=== PATIENT | male | born 1960 | race Caucasian/White ===

== ENCOUNTER 2023-01-08 11:53 | Day surgery (SDC) | payer OTHER ==
[2023-01-07 10:01] LABS: BASOPHILS # (AUTO) 0.1 X10'3 (0-0.2); BASOPHILS % (AUTO) 0.7 % (0-1); EOSINOPHILS # (AUTO) 0.2 X10'3 (0-0.9); EOSINOPHILS % (AUTO) 3.5 % (0-6); HEMOGLOBIN 14.7 g/dl (14.0-17.9); LYMPHOCYTES # (AUTO) 2.1 X10'3 (1.1-4.8); LYMPHOCYTES % (AUTO) 29.6 % (21-51); MEAN CORPUSCULAR HEMOGLOBIN 28.3 PG (27.0-31.0); MEAN CORPUSCULAR HGB CONC 32.6 g/dL (33.0-36.5); MEAN CORPUSCULAR VOLUME 86.8 FL (78-98); MEAN PLATELET VOLUME 7.8 FL (7.4-10.4); MONOCYTES # (AUTO) 0.7 X10'3 (0-0.9); MONOCYTES % (AUTO) 10.4 % (2-12); NEUTROPHILS # (AUTO) 3.9 X10'3 (1.8-7.7); NEUTROPHILS % (AUTO) 55.8 % (42-75); PLATELET COUNT 200 X10'3 (140-440); RED BLOOD COUNT 5.18 X10'6 (4.70-6.10); RED CELL DISTRIBUTION WIDTH 13.8 % (11.5-14.5)
[2023-01-07 10:13] LABS: ALBUMIN 3.7 G/DL (3.4-5.0); ANION GAP 8 (8-16); APTT 26 SECONDS (22-32); BLOOD UREA NITROGEN 21 MG/DL (7-18); BUN/CREATININE RATIO 21.4 (10.0-20.0); CALCIUM 9.5 MG/DL (8.5-10.1); CHLORIDE 104 MMOL/L (99-107); CREATININE 0.98 MG/DL (0.60-1.10); GLUCOSE 120 MG/DL (70-104); POTASSIUM 4.3 MMOL/L (3.5-5.1); PROTHROMBIN TIME 10.5 SECONDS (9.0-12.0); SODIUM 141 MMOL/L (135-145); eGFR 77 ML/MIN
[2023-01-08] VITALS (8 sets, daily range): BP systolic 128–144; BP diastolic 67–80; PULSE 60–69; RESP 14–17; TEMP 98.1; O2SAT 94–97
[~2023-01-08] VITALS: Ht 182.9 cm; Wt 94.8 kg
[2023-01-08] MEDS ORDERED: AMLO10TA13 PO (12:13)
[2023-01-08] MEDS ORDERED: LISI40TA13 PO (12:13)
[2023-01-08] MEDS ORDERED: OMEP40CA21 PO (12:13)
[2023-01-08] MEDS ORDERED: ATOR10TA70 PO (12:13)
[2023-01-08] MEDS ORDERED: NEBI5TAB12 PO (12:13)
[2023-01-08] MEDS ORDERED: diphenhydrAMINE 25mg capsule PO PRN (12:15)
[2023-01-08] MEDS ORDERED: LORazepam 0.5 MG tablet PO PRN (12:15)
[2023-01-08] MEDS ORDERED: normal saline 1,000 ML IV SCH (12:15)
[2023-01-08] MEDS ORDERED: fentaNYL/PF 50MCG/1 ML 2ML syringe ONE (12:53)
[2023-01-08] MEDS ORDERED: verapamil 2.5 mg/ml inj IV ONE (12:53)
[2023-01-08] MEDS ORDERED: LIDOcaine 1% (10mg/ml) 2ml vial ONE (12:53)
[2023-01-08] MEDS ORDERED: iohexol 350 MG/ML 50ML vial IV ONE (12:53)
[2023-01-08] MEDS ORDERED: midazolam 1 mg/ML 2ml injection ONE (12:53)
[2023-01-08] MEDS ORDERED: heparin 1,000unit/ml 10ml vial 10 ML ONE (12:53)
[2023-01-08] MEDS ORDERED: iohexol 350MG/ML 100ml bottle IV ONE (12:54)
[2023-01-08] MEDS ORDERED: nitroGLYCERIN 500mcg/5mL D5W 5 ML IV ONE (13:05)
[2023-01-08] MEDS ORDERED: LIDOcaine 1% (10mg/ml)w/preservative inj. 20ml MDV ONE (14:35)
[2023-01-08 15:16] LABS: ISTAT HGB ART 13.6 g/dl (14.0-17.9); ISTAT Hct ART 40 %PCV (42-52); ISTAT O2 SATURATION ARTERIAL 94 % (95-98); ISTAT SOURCE ART
[2023-01-08] MEDS ORDERED: normal saline 1000ml 1,000 ML IV SCH (15:55)
[2023-01-11 07:01] LABS: ISTAT HGB MIX 13.6 g/dl (14.0-17.9); ISTAT Hct MIX 40 %PCV (42-52); ISTAT O2 SATURATION MIX VENOUS 51 % (60-80); ISTAT SOURCE VEN
== END 2023-01-08 18:00 | disposition home or self-care (01) ==
LOC: SSTAY O 11:53
PROVIDERS: ATTEND Internal Medicine Cardiovascular Disease
DX: I35.1 Nonrheumatic aortic (valve) insufficiency (principal); I10 Essential (primary) hypertension; E78.5 Hyperlipidemia, unspecified; J45.909 Unspecified asthma, uncomplicated; Z79.899 Other long term (current) drug therapy; Z98.890 Other specified postprocedural states; Z91.013 Allergy to seafood; Z88.8 Allergy status to other drugs, medicaments and biological substances; Z82.49 Family history of ischemic heart disease and other diseases of the circulatory system; Z83.3 Family history of diabetes mellitus
CPT/HCPCS: 36415; 76937; 80048; 82803; 85014; 85025; 85610; 85730; 93005; 93460; 93567; 99152; 99153; J1644; J2250; J3010; J3490; J7030; Q0163; Q9967; A6258; A6449; C1725; C1751; C1769; C1894

== ENCOUNTER 2023-01-21 05:34 | Inpatient (IN) | payer OTHER ==
[2023-01-20 13:13] LABS: ABG BASE EXCESS -1.3 mmol/L (-2.0-2.0); ABG HCO3 23.3 mmol/L (22.0-26.0); ABG PCO2 (T) 38.9 mmHg (35.0-48.0); ABG PH (T) 7.395 (7.340-7.440); ALLEN'S TEST POSITIVE; FCOHb 0.4 % (0.0-3.9); FMetHb 0.4 % (0.0-1.5); FO2Hb 94.2 % (94-97); MODE ROOM AIR; TOTAL HEMOGLOBIN 15.8 G/dl (14.0-17.9)
[2023-01-20 13:46] LABS: BILIRUBIN,URINE NEGATIVE (Neg); CLARITY,URINE CLEAR (Clear); COLOR,URINE YELLOW (Yellow); GLUCOSE, URINE NEGATIVE (Neg); KETONES,URINE TRACE mg/dl (Neg); LEUKOCYTE ESTERASE ,URINE NEGATIVE (Neg); NITRITES, URINE NEGATIVE (Neg); OCCULT BLOOD,URINE NEGATIVE (Neg); PH,URINE 5.5 (4.8-8.0); PROTEIN,URINE NEGATIVE (Neg); UROBILINOGEN,URINE 0.2 E.U/dL (0.2-1.0)
[2023-01-20 13:47] LABS: BASOPHILS # (AUTO) 0.1 X10'3 (0-0.2); BASOPHILS % (AUTO) 0.9 % (0-1); EOSINOPHILS # (AUTO) 0.3 X10'3 (0-0.9); EOSINOPHILS % (AUTO) 4.5 % (0-6); LYMPHOCYTES # (AUTO) 1.8 X10'3 (1.1-4.8); MEAN CORPUSCULAR HEMOGLOBIN 28.8 PG (27.0-31.0); MEAN CORPUSCULAR HGB CONC 33.2 g/dL (33.0-36.5); MEAN CORPUSCULAR VOLUME 86.8 FL (78-98); MEAN PLATELET VOLUME 8.3 FL (7.4-10.4); MONOCYTES # (AUTO) 0.7 X10'3 (0-0.9); MONOCYTES % (AUTO) 10.1 % (2-12); NEUTROPHILS # (AUTO) 3.9 X10'3 (1.8-7.7); NEUTROPHILS % (AUTO) 57.5 % (42-75); PRE OP HEMATOCRIT 45.2 % (42.0-52.0); PRE OP PLATELET COUNT 229 X10'3 (140-440); PRE OP WHITE BLOOD COUNT 6.8 10'3 (4.8-10.8); RED CELL DISTRIBUTION WIDTH 13.9 % (11.5-14.5)
[2023-01-20 13:48] LABS: UA COLLECTION TYPE VOIDED
[2023-01-20 13:59] LABS: PRE OP PROTIME 10.3 SECONDS (9.0-12.0)
[2023-01-20 14:08] LABS: ALBUMIN 3.8 G/DL (3.4-5.0); ALBUMIN/GLOBULIN RATIO 1.4 (1.1-1.5); ALKALINE PHOSPHATASE 74 IU/L (46-116); BLOOD UREA NITROGEN 15 MG/DL (7-18); BUN/CREATININE RATIO 17.9 (10.0-20.0); CHLORIDE 103 MMOL/L (99-107); CREATININE 0.84 MG/DL (0.60-1.10); PRE OP ALT 44 U/L (30-65); PRE OP ANION GAP 15 (8-16); PRE OP AST 27 U/L (10-37); PRE OP BILIRUB, TOTAL 0.3 MG/DL (0.0-1.0); PRE OP GLUCOSE 170 MG/DL (70-104); PRE OP SODIUM 141 MMOL/L (135-145); TOTAL CARBON DIOXIDE 23.2 MMOL/L (24-32); TOTAL PROTEIN 6.6 G/DL (6.4-8.2); eGFR > 90 ML/MIN
[2023-01-20 14:16] LABS: HEMOGLOBIN A1C 6.3 % (4.5-6.2)
[2023-01-21] VITALS (21 sets, daily range): BP systolic 87–144; BP diastolic 51–91; PULSE 63–85; RESP 14–24; TEMP 97.6–97.7; O2SAT 91–98
[~2023-01-21] VITALS: Ht 177.8 cm; Wt 115.6 kg
[~2023-01-21 05:34] MED LIST: AMLO10TA13 PO; ATOR10TA70 PO; DOCUMENT DATE & TIME OF BETA-BLOCKER PO ONE; Insulin Reg/NS 100units/100mL 100 ML IV SCH; LISI40TA13 PO; LORazepam 2 mg/ml vial IV ONE; MAGN400C PO; NEBI5TAB12 PO; OMEP40CA21 PO; cefazolin 2gm/D5W 100mL 100 ML IV ONE; dextrose 50%-water 50ml dispensing syringe IV PRN; famotidine 20mg tablet PO ONE; insulin glargine (Lantus) pen - multi-dose SQ PRN; metoprolol tartrate 12.5mg (1/2 tablet) PO ONE; mupirocin 2% nasal ointment 1gm UD NS ONE; ringers solution, lacted 1,000 ML IV SCH; vancomycin 1,500 MG in NS 300ml IV soln IV ONE
[2023-01-21] MEDS ORDERED: albumin (human) 25% 100 ML IV solution IV ONE (08:00)
[2023-01-21] MEDS ORDERED: potassium Cl 2 mEq/ml inj IV ONE (08:00)
[2023-01-21] MEDS ORDERED: epiNEPHrine 1 mg/ml inj SQ ONE (08:00)
[2023-01-21] MEDS ORDERED: methylPREDNISolone sod. succ. 500mg inj ONE (08:00)
[2023-01-21] MEDS ORDERED: MAGNESIUM SULFATE 4 MEQ/ML (5gm/10ml) injection ONE (08:00)
[2023-01-21] MEDS ORDERED: sodium bicarbonate (8.4%) 1 mEq/ml syringe ONE (08:00)
[2023-01-21] MEDS ORDERED: LIDOcaine 2% (20 mg/ml) 5ml cardiac syringe ONE (08:00)
[2023-01-21] MEDS ORDERED: NORepinephrine 1 mg/ml inj IV ONE (08:00)
[2023-01-21] MEDS ORDERED: ceFAZolin 1000mg inj IR ONE (08:00)
[2023-01-21] MEDS ORDERED: calcium chloride 100 MG/1 ML inj IV ONE (08:00)
[2023-01-21] MEDS ORDERED: mannitol 12.5gm/50mL VIAL IV ONE (08:00)
[2023-01-21] MEDS ORDERED: aminocaproic acid 250 MG/1 ML inj. ONE (08:00)
[2023-01-21] MEDS ORDERED: heparin 10,000 units/1 ML INJ ONE (08:00)
[2023-01-21] MEDS ORDERED: MIDAZolam 1mg/ml 10ml vial ONE (08:02)
[2023-01-21] MEDS ORDERED: SUfentanil 50mcg/ml 1ml amp IV ONE (08:03)
[2023-01-21] MEDS ORDERED: ceFAZolin 1000mg inj ONE (08:15)
[2023-01-21] MEDS ORDERED: vancomycin 1,000mg inj ONE (08:15)
[2023-01-21] MEDS ORDERED: propofol 1000mg/100ml bottle 100 ML IV SCH (08:15)
[2023-01-21] MEDS ORDERED: midazolam 1 mg/ML 2ml injection IV ONE (08:15)
[2023-01-21] MEDS ORDERED: fentaNYL/PF 50MCG/1 ML 2ML syringe IV PRN (08:15)
[2023-01-21] MEDS ORDERED: BUPIVAcaine/PF 2.5mg/ml (0.25%) 10ml vial ONE (08:16)
[2023-01-21] MEDS ORDERED: epiNEPHrine 1 mg/ml inj ONE (08:24)
[2023-01-21] MEDS ORDERED: midazolam 100mg in NS 100ml 100 ML IV PRN (09:00)
[2023-01-21] MEDS ORDERED: protamine sulf. 10mg/ml inj. IV ONE (09:02)
[2023-01-21] MEDS ORDERED: albumin (Human) 5% 250ml BOTTLE IV ONE (09:02)
[2023-01-21] MEDS ORDERED: nitroGLYCERIN in D5W 50mg/250ml (Tridil) infusion IV ONE (09:02)
[2023-01-21] MEDS ORDERED: NORepinephrine 8 MG in NS 250 ML BAG (32 mcg/ml) IV ONE (09:02)
[2023-01-21] MEDS ORDERED: isoflurane 100ml inhalation liquid IH ONE (09:02)
[2023-01-21 09:49] LABS: ABG BASE EXCESS -2.1 mmol/L (-2.0-2.0); ABG HCO3 24.4 mmol/L (22.0-26.0); ABG OXYGEN SATURATION 99.4 % (94-97); ABG PCO2 48.6 mmHg (35.0-48.0); ABG PH 7.319 (7.340-7.440); ABG PO2 394.9 mmHg (75.0-100.0); CL (ABG) 103 mmol/L (99-107); FCOHb 0.3 % (0.0-3.9); FHHb 0.6 % (0.0-5.0); FMetHb 0.3 % (0.0-1.5); FO2Hb 98.8 % (94-97); GLUCOSE (ABG) 117 mg/dl (70-104); IONIZED CA (ABG) 1.18 mmol/L (1.10-1.30); K (ABG) 4.5 mmol/L (3.5-5.1); TOTAL HEMOGLOBIN 13.7 G/dl (14.0-17.9)
[2023-01-21 10:12] LABS: ABG BASE EXCESS -1.3 mmol/L (-2.0-2.0); ABG OXYGEN SATURATION 99.4 % (94-97); ABG PCO2 54.6 mmHg (35.0-48.0); ABG PH 7.295 (7.340-7.440); ABG PO2 400.6 mmHg (75.0-100.0); CL (ABG) 103 mmol/L (99-107); FCOHb 0.3 % (0.0-3.9); FHHb 0.6 % (0.0-5.0); FMetHb 0.1 % (0.0-1.5); GLUCOSE (ABG) 114 mg/dl (70-104); IONIZED CA (ABG) 1.16 mmol/L (1.10-1.30); K (ABG) 4.9 mmol/L (3.5-5.1); TOTAL HEMOGLOBIN 13.4 G/dl (14.0-17.9)
[2023-01-21 10:34] LABS: ABG BASE EXCESS VENOUS -1.8 mmol/L (-2.0 - 2.0); ABG OXYGEN SATURATION VENOUS 84.1 % (75 - 99 %); ABG PCO2 VENOUS 59.5 mmHg (41.0-54.0); ABG PH (VENOUS) 7.258 (7.310-7.450); ABG PO2 VENOUS 51.4 mmHg (25.0-35.0); CL (ABG) 100 mmol/L (99-107); FCOHb VENOUS 0.3 %; FHHb VENOUS 15.8 %; FMetHb VENOUS 0.3 % (0.0 - 0.5); FO2Hb VENOUS 83.6 %; GLUCOSE (ABG) 109 mg/dl (70-104); IONIZED CA (ABG) 1.09 mmol/L (1.10-1.30); TOTAL HEMOGLOBIN 11.1 G/dl (14.0-17.9)
[2023-01-21 10:37] LABS: ABG BASE EXCESS -3.3 mmol/L (-2.0-2.0); ABG HCO3 23.8 mmol/L (22.0-26.0); ABG PCO2 52.1 mmHg (35.0-48.0); ABG PH 7.277 (7.340-7.440); ABG PO2 315.5 mmHg (75.0-100.0); CL (ABG) 100 mmol/L (99-107); FCOHb 0.2 % (0.0-3.9); FMetHb 0.3 % (0.0-1.5); FO2Hb 98.5 % (94-97); GLUCOSE (ABG) 105 mg/dl (70-104); TOTAL HEMOGLOBIN 11.1 G/dl (14.0-17.9)
[2023-01-21] MEDS ORDERED: LIDOcaine 2% (20mg/ml) 5ml vial ONE (11:04)
[2023-01-21] MEDS ORDERED: propofol inj 20 ML IV ONE (11:04)
[2023-01-21] MEDS ORDERED: rocuronium 10mg/ml inj IV ONE ×3 (11:04→11:06)
[2023-01-21] MEDS ORDERED: 0.9 % SODIUM CHLORIDE 10 ML VIAL ONE ×2 (11:04→11:05)
[2023-01-21] MEDS ORDERED: ePHEDrine 50MG/ML INJ. ONE (11:05)
[2023-01-21] MEDS ORDERED: phenylephrine 10mg/ml inj. -priapism dosing ONE (11:05)
[2023-01-21 11:06] LABS: ABG BASE EXCESS -0.1 mmol/L (-2.0-2.0); ABG HCO3 26.7 mmol/L (22.0-26.0); ABG PCO2 53.9 mmHg (35.0-48.0); ABG PH 7.313 (7.340-7.440); ABG PO2 301.7 mmHg (75.0-100.0); CL (ABG) 97 mmol/L (99-107); FCOHb 0.2 % (0.0-3.9); FMetHb 0.3 % (0.0-1.5); FO2Hb 98.5 % (94-97); GLUCOSE (ABG) 152 mg/dl (70-104); IONIZED CA (ABG) 1.05 mmol/L (1.10-1.30)
[2023-01-21 11:24] LABS: ABG BASE EXCESS -0.2 mmol/L (-2.0-2.0); ABG HCO3 27.1 mmol/L (22.0-26.0); ABG OXYGEN SATURATION 98.9 % (94-97); ABG PCO2 57.2 mmHg (35.0-48.0); ABG PH 7.293 (7.340-7.440); ABG PO2 297.2 mmHg (75.0-100.0); CL (ABG) 98 mmol/L (99-107); FCOHb 0.2 % (0.0-3.9); FHHb 1.1 % (0.0-5.0); FMetHb 0.3 % (0.0-1.5); FO2Hb 98.4 % (94-97); GLUCOSE (ABG) 208 mg/dl (70-104); IONIZED CA (ABG) 1.33 mmol/L (1.10-1.30)
[2023-01-21 11:35] LABS: ABG BASE EXCESS -2.5 mmol/L (-2.0-2.0); ABG HCO3 22.3 mmol/L (22.0-26.0); ABG OXYGEN SATURATION 98.8 % (94-97); ABG PCO2 38.7 mmHg (35.0-48.0); ABG PH 7.379 (7.340-7.440); ABG PO2 216.7 mmHg (75.0-100.0); CL (ABG) 100 mmol/L (99-107); FCOHb 0.2 % (0.0-3.9); FHHb 1.2 % (0.0-5.0); FMetHb 0.3 % (0.0-1.5); FO2Hb 98.3 % (94-97); GLUCOSE (ABG) 186 mg/dl (70-104); IONIZED CA (ABG) 1.23 mmol/L (1.10-1.30); K (ABG) 5.9 mmol/L (3.5-5.1); TOTAL HEMOGLOBIN 11.3 G/dl (14.0-17.9)
[2023-01-21] MEDS ORDERED: dexamethasone sod phosphate 4mg/ml inj. ONE (11:41)
[2023-01-21] MEDS ORDERED: ondansetron/PF 4mg/2ml inj ONE (11:41)
[2023-01-21 11:50] LABS: ACTIVATED CLOTTING TIME 116 SEC (101-148)
[2023-01-21] MEDS ORDERED: nitroGLYCERIN-Tridil 50MG/D5W 250 ML IV PRN (11:55)
[2023-01-21] MEDS ORDERED: Neutra Phos packet PO PRN (11:55)
[2023-01-21] MEDS ORDERED: sodium phosphate inj. 30 MMOL in dextrose 5%-water 250 ML IV PRN (11:55)
[2023-01-21] MEDS ORDERED: metoclopramide 5 mg/ml inj IV PRN (11:55)
[2023-01-21] MEDS ORDERED: dextrose 50%-water 50ml dispensing syringe IV PRN (11:55)
[2023-01-21] MEDS ORDERED: magnesium hydroxide 30ml (MOM) UD suspension PO PRN (11:55)
[2023-01-21] MEDS ORDERED: insulin glargine (Lantus) pen - multi-dose SQ PRN (11:55)
[2023-01-21] MEDS ORDERED: NORepinephrine 8mg/ 250ml NS 250 ML IV PRN (11:55)
[2023-01-21] MEDS ORDERED: sodium phosphate inj. 15 MMOL in dextrose 5%-water 250 ML IV PRN (11:55)
[2023-01-21] MEDS ORDERED: bisacodyl 10mg suppository rectal RC PRN (11:55)
[2023-01-21] MEDS ORDERED: potassium CL 10mEq/100ml bag 100 ML IV PRN (11:55)
[2023-01-21] MEDS ORDERED: Insulin Reg/NS 100units/100mL 100 ML IV SCH (11:55)
[2023-01-21] MEDS ORDERED: potassium Cl 40MEQ/1/2NS 520ml 520 ML IV PRN (11:55)
[2023-01-21] MEDS ORDERED: potassium Cl 20 mEq SR tablet PO PRN (11:55)
[2023-01-21] MEDS ORDERED: magnesium 4gm in 100ml NS 100 ML IV PRN (11:55)
[2023-01-21] MEDS ORDERED: potassium Cl 40MEQ/270ML bag 250 ML IV PRN (11:55)
[2023-01-21] MEDS ORDERED: niCARDipine-NS 40mg/200ml IVPB 200 ML IV PRN (11:55)
[2023-01-21] MEDS ORDERED: acetaminophen 325mg tablet PO PRN ×2 (11:55)
[2023-01-21] MEDS ORDERED: ondansetron/PF 4mg/2ml inj IV PRN (11:55)
[2023-01-21] MEDS ORDERED: mineral oil 133ml enema RC PRN (11:55)
[2023-01-21] MEDS ORDERED: morphine 4 MG/ML inj SYRINge IV PRN (11:55)
[2023-01-21 12:53] LABS: TOTAL HEMOGLOBIN 13.9 G/dl (14.0-17.9)
[2023-01-21 12:55] LABS: BASOPHILS % (AUTO) 0.3 % (0-1); EOSINOPHILS # (AUTO) 0.2 X10'3 (0-0.9); EOSINOPHILS % (AUTO) 1.7 % (0-6); HEMATOCRIT 39.7 % (42.0-52.0); HEMOGLOBIN 12.9 g/dl (14.0-17.9); LYMPHOCYTES # (AUTO) 1.3 X10'3 (1.1-4.8); LYMPHOCYTES % (AUTO) 9.6 % (21-51); MEAN CORPUSCULAR HEMOGLOBIN 28.8 PG (27.0-31.0); MEAN CORPUSCULAR HGB CONC 32.5 g/dL (33.0-36.5); MEAN CORPUSCULAR VOLUME 88.4 FL (78-98); MEAN PLATELET VOLUME 8.3 FL (7.4-10.4); MONOCYTES # (AUTO) 0.8 X10'3 (0-0.9); MONOCYTES % (AUTO) 6.1 % (2-12); NEUTROPHILS # (AUTO) 11.4 X10'3 (1.8-7.7); NEUTROPHILS % (AUTO) 82.3 % (42-75); PLATELET COUNT 184 X10'3 (140-440); RED CELL DISTRIBUTION WIDTH 13.9 % (11.5-14.5); WHITE BLOOD COUNT 13.8 X10'3 (4.5-11.0)
[2023-01-21 13:17] LABS: ALANINE AMINOTRANSFERASE 29 U/L (12-78); ALBUMIN/GLOBULIN RATIO 1.5 (1.1-1.5); ALKALINE PHOSPHATASE 48 IU/L (46-116); ANION GAP 9 (8-16); ASPARTATE AMINO TRANSFERASE 38 U/L (10-37); BILIRUBIN,TOTAL 0.5 MG/DL (0.1-1.0); BLOOD UREA NITROGEN 15 MG/DL (7-18); BUN/CREATININE RATIO 13.6 (10.0-20.0); CALCIUM 8.2 MG/DL (8.5-10.1); CHLORIDE 105 MMOL/L (99-107); GLUCOSE 138 MG/DL (70-104); MAGNESIUM 2.6 MG/DL (1.5-2.4); PHOSPHORUS 2.6 MG/DL (2.3-4.5); SODIUM 139 MMOL/L (135-145); TOTAL CARBON DIOXIDE 25.5 MMOL/L (24-32); eCRCL 70 ML/MIN; eGFR 67 ML/MIN
--- NOTE | 2023-01-21 13:17 | NUR ---
Nutrition consult: Per EMR pt remains intubated s/p AVR via mini sternotomy today. Pt would benefit from high protein nutrition therapy education as appropriate following extubation. Will continue to follow. Addendum: 01/21/23 at [address] Amended: Links added.
[2023-01-21 13:23] LABS: POTASSIUM 4.9 MMOL/L (3.5-5.1)
[2023-01-21] MEDS: sodium chloride 0.45% 1,000 ML IV SCH (13:23)
[2023-01-21] MEDS: Insulin Reg/NS 100units/100mL 100 ML IV SCH (13:29)
[2023-01-21] MEDS: ketorolac tromethamine 15mg/ml inj. IV SCH ×2 (13:41→19:44)
[2023-01-21] MEDS: albumin (Human) 5% 250ml 250 ML IV PRN ×3 (13:46→18:23)
[2023-01-21 14:20] LABS: APTT 22 SECONDS (22-32); INR 1.1 INR; PROTHROMBIN TIME 12.1 SECONDS (9.0-12.0)
[2023-01-21] MEDS ORDERED: naloxone 0.4 mg/ml inj IV PRN (14:30)
[2023-01-21 14:32] LABS: ABG BASE EXCESS -4.3 mmol/L (-2.0-2.0); ABG HCO3 21.6 mmol/L (22.0-26.0); ABG OXYGEN SATURATION 93.9 % (94-97); ABG PCO2 (T) 41.2 mmHg (35.0-48.0); ABG PH (T) 7.333 (7.340-7.440); ABG PO2 (T) 68.9 mmHg (75.0-100.0); FMetHb 0.3 % (0.0-1.5); FO2Hb 92.7 % (94-97); MODE VENT - CPAP; PATIENT TEMPERATURE 36.2; PEEP 5 cm H2O; TOTAL HEMOGLOBIN 12.9 G/dl (14.0-17.9)
[2023-01-21 14:46] LABS: FIBRINOGEN 172 MG/DL (177-424)
[2023-01-21] MEDS: morphine 2 MG/ML inj. syringe IV PRN ×3 (14:57→22:57)
[2023-01-21] MEDS: ceFAZolin/D5W- 1GM premix 50 ML IV SCH ×2 (17:04→23:21)
[2023-01-21] MEDS ORDERED: albuterol 2.5 MG/3 ML nebule NEB PRN (17:40)
--- NOTE | 2023-01-21 18:30 | NUR ---
Patient in room ICU 2040. I have received report from Kashif BEE and had the opportunity to ask questions and assume patient care.
[2023-01-21 18:48] LABS: BASOPHILS % (AUTO) 0.2 % (0-1); EOSINOPHILS % (AUTO) 0.2 % (0-6); HEMOGLOBIN 11.5 g/dl (14.0-17.9); LYMPHOCYTES # (AUTO) 0.8 X10'3 (1.1-4.8); LYMPHOCYTES % (AUTO) 4.9 % (21-51); MEAN CORPUSCULAR VOLUME 87.9 FL (78-98); MEAN PLATELET VOLUME 8.5 FL (7.4-10.4); MONOCYTES # (AUTO) 0.9 X10'3 (0-0.9); MONOCYTES % (AUTO) 5.2 % (2-12); NEUTROPHILS # (AUTO) 15.1 X10'3 (1.8-7.7); NEUTROPHILS % (AUTO) 89.5 % (42-75); PLATELET COUNT 224 X10'3 (140-440); RED BLOOD COUNT 3.99 X10'6 (4.70-6.10); RED CELL DISTRIBUTION WIDTH 13.8 % (11.5-14.5); WHITE BLOOD COUNT 16.9 X10'3 (4.5-11.0)
[2023-01-21 19:04] LABS: ALBUMIN 3.9 G/DL (3.4-5.0); ANION GAP 14 (8-16); BLOOD UREA NITROGEN 19 MG/DL (7-18); BUN/CREATININE RATIO 13.5 (10.0-20.0); CALCIUM 8.4 MG/DL (8.5-10.1); CHLORIDE 105 MMOL/L (99-107); CREATININE 1.41 MG/DL (0.60-1.10); GLUCOSE 163 MG/DL (70-104); MAGNESIUM 2.2 MG/DL (1.5-2.4); PHOSPHORUS 3.4 MG/DL (2.3-4.5); SODIUM 142 MMOL/L (135-145); TOTAL CARBON DIOXIDE 22.9 MMOL/L (24-32); eCRCL 55 ML/MIN; eGFR 51 ML/MIN
[2023-01-21] MEDS: potassium Cl 20mEq/100mL bag 100 ML IV PRN ×2 (19:22→21:27)
[2023-01-21] MEDS: magnesium 2GM in 50ml NS 50 ML IV PRN (19:24)
[2023-01-21] MEDS: mupirocin 2% nasal ointment 1gm UD NS SCH (19:44)
[2023-01-21] MEDS: vancomycin/NS 1 GM ADD-VANTAGE 250 ML IV SCH (19:44)
[2023-01-21] MEDS: sennosides/docusate sodium tablet PO SCH (19:45)
[2023-01-21] MEDS: atorvastatin 10mg tablet PO SCH (20:46)
[2023-01-22] VITALS (26 sets, daily range): BP systolic 106–134; BP diastolic 55–90; PULSE 62–76; RESP 13–24; O2SAT 90–94
[2023-01-22] MEDS: ketorolac tromethamine 15mg/ml inj. IV SCH ×2 (01:32→09:33)
[2023-01-22] MEDS: Insulin Reg/NS 100units/100mL 100 ML IV SCH (01:37)
[2023-01-22 01:41] LABS: BASOPHILS % (AUTO) 0.1 % (0-1); EOSINOPHILS % (AUTO) 0 % (0-6); HEMATOCRIT 31.1 % (42.0-52.0); HEMOGLOBIN 10.5 g/dl (14.0-17.9); LYMPHOCYTES # (AUTO) 0.4 X10'3 (1.1-4.8); LYMPHOCYTES % (AUTO) 2.9 % (21-51); MEAN CORPUSCULAR HEMOGLOBIN 29.2 PG (27.0-31.0); MEAN CORPUSCULAR HGB CONC 33.8 g/dL (33.0-36.5); MEAN CORPUSCULAR VOLUME 86.5 FL (78-98); MEAN PLATELET VOLUME 8.7 FL (7.4-10.4); MONOCYTES # (AUTO) 0.8 X10'3 (0-0.9); MONOCYTES % (AUTO) 5.9 % (2-12); NEUTROPHILS # (AUTO) 12.6 X10'3 (1.8-7.7); NEUTROPHILS % (AUTO) 91.1 % (42-75); PLATELET COUNT 154 X10'3 (140-440); RED BLOOD COUNT 3.59 X10'6 (4.70-6.10); RED CELL DISTRIBUTION WIDTH 13.8 % (11.5-14.5); WHITE BLOOD COUNT 13.8 X10'3 (4.5-11.0)
[2023-01-22 01:57] LABS: ALANINE AMINOTRANSFERASE 28 U/L (12-78); ALBUMIN 3.8 G/DL (3.4-5.0); ALBUMIN/GLOBULIN RATIO 1.9 (1.1-1.5); ALKALINE PHOSPHATASE 40 IU/L (46-116); ANION GAP 9 (8-16); ASPARTATE AMINO TRANSFERASE 35 U/L (10-37); BILIRUBIN,TOTAL 0.5 MG/DL (0.1-1.0); BLOOD UREA NITROGEN 20 MG/DL (7-18); BUN/CREATININE RATIO 17.7 (10.0-20.0); CALCIUM 8.7 MG/DL (8.5-10.1); CHLORIDE 106 MMOL/L (99-107); CREATININE 1.13 MG/DL (0.60-1.10); GLUCOSE 132 MG/DL (70-104); MAGNESIUM 2.3 MG/DL (1.5-2.4); POTASSIUM 5.1 MMOL/L (3.5-5.1); SODIUM 139 MMOL/L (135-145); TOTAL CARBON DIOXIDE 24.3 MMOL/L (24-32); TOTAL PROTEIN 5.8 G/DL (6.4-8.2); eCRCL 68 ML/MIN; eGFR 65 ML/MIN
[2023-01-22] MEDS: magnesium 2GM in 50ml NS 50 ML IV PRN (02:21)
[2023-01-22] MEDS: HYDROcodone/acetaminophen 10/325mg tab PO PRN ×4 (03:31→21:11)
--- NOTE | 2023-01-22 05:00 | NUR ---
Patient up to chair, tolerated well for about 30min then asked to go back to bed.
--- NOTE | 2023-01-22 05:58 | NUR ---
Patient asking for glasses. Patient stated that PAS unit placed glasses in a hair net and hung on IV pole. I searched the room and have not been able to locate glasses. Called PAS and they will look for glasses and let us know.
--- NOTE | 2023-01-22 06:11 | NUR ---
Problems reprioritized. Patient report given, questions answered & plan of care reviewed with Kashif BEE.
--- NOTE | 2023-01-22 06:48 | NUR ---
Patient in room ICU 2040. I have received report from CRISTAL Toney and had the opportunity to ask questions and assume patient care.
[2023-01-22] MEDS: ceFAZolin/D5W- 1GM premix 50 ML IV SCH ×3 (09:31→23:59)
[2023-01-22] MEDS: vancomycin/NS 1 GM ADD-VANTAGE 250 ML IV SCH ×2 (09:32→20:19)
[2023-01-22] MEDS: metoprolol tartrate 12.5mg (1/2 tablet) PO SCH ×2 (09:33→20:19)
[2023-01-22] MEDS: mupirocin 2% nasal ointment 1gm UD NS SCH ×2 (09:34→20:18)
[2023-01-22] MEDS: aspirin 81mg tab.chew PO SCH (09:34)
[2023-01-22] MEDS: sennosides/docusate sodium tablet PO SCH ×2 (09:34→20:19)
--- NOTE | 2023-01-22 10:55 | NUR ---
Problems reprioritized. Patient report given, questions answered & plan of care reviewed with CRISTAL Willis.
[2023-01-22] MEDS ORDERED: glucagon, human recombinant 1mg kit SUBCUT PRN (12:55)
[2023-01-22] MEDS ORDERED: DEXTROSE 15 GM of carb/4 tabs (each vial/BOTTLE has 4 tablets) PO PRN ×2 (12:55)
[2023-01-22] MEDS ORDERED: MESSAGE TO PHARMACY PO ONE (12:55)
[2023-01-22] MEDS ORDERED: dextrose 50%-water 50ml dispensing syringe IV PRN ×2 (12:55)
[2023-01-22] MEDS ORDERED: mineral oil/petrolatum ophthal oint EACHEYE SCH (14:00)
[2023-01-22] MEDS ORDERED: insulin glargine (Lantus) pen - multi-dose SQ SCH (14:00)
[2023-01-22] MEDS: insulin Lispro (HumaLOG) vial - multi-dose SQ SCH ×2 (14:21→18:49)
--- NOTE | 2023-01-22 16:00 | NUR ---
Patient heart rhythm showing some ST elevation. 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 No new order placed at this time.
[2023-01-22] MEDS: atorvastatin 10mg tablet PO SCH (20:19)
[2023-01-23] VITALS (22 sets, daily range): BP systolic 126–162; BP diastolic 79–100; PULSE 61–76; RESP 16–21; O2SAT 90–97
[2023-01-23 03:24] LABS: BASOPHILS % (AUTO) 0.1 % (0-1); EOSINOPHILS % (AUTO) 0 % (0-6); HEMATOCRIT 28.4 % (42.0-52.0); HEMOGLOBIN 9.2 g/dl (14.0-17.9); LYMPHOCYTES # (AUTO) 0.7 X10'3 (1.1-4.8); MEAN CORPUSCULAR HEMOGLOBIN 28.6 PG (27.0-31.0); MEAN CORPUSCULAR HGB CONC 32.5 g/dL (33.0-36.5); MEAN CORPUSCULAR VOLUME 87.9 FL (78-98); MEAN PLATELET VOLUME 9.4 FL (7.4-10.4); MONOCYTES # (AUTO) 1.1 X10'3 (0-0.9); MONOCYTES % (AUTO) 7.7 % (2-12); NEUTROPHILS # (AUTO) 12.9 X10'3 (1.8-7.7); NEUTROPHILS % (AUTO) 87.2 % (42-75); PLATELET COUNT 121 X10'3 (140-440); RED BLOOD COUNT 3.23 X10'6 (4.70-6.10); RED CELL DISTRIBUTION WIDTH 14.4 % (11.5-14.5); WHITE BLOOD COUNT 14.9 X10'3 (4.5-11.0)
[2023-01-23 03:42] LABS: ALBUMIN 3.3 G/DL (3.4-5.0); ANION GAP 5 (8-16); BLOOD UREA NITROGEN 27 MG/DL (7-18); BUN/CREATININE RATIO 25.7 (10.0-20.0); CALCIUM 8.6 MG/DL (8.5-10.1); CHLORIDE 98 MMOL/L (99-107); CREATININE 1.05 MG/DL (0.60-1.10); GLUCOSE 176 MG/DL (70-104); MAGNESIUM 2.5 MG/DL (1.5-2.4); PHOSPHORUS 4.2 MG/DL (2.3-4.5); POTASSIUM 5.7 MMOL/L (3.5-5.1); SODIUM 132 MMOL/L (135-145); TOTAL CARBON DIOXIDE 29.1 MMOL/L (24-32); eCRCL 73 ML/MIN; eGFR 71 ML/MIN
--- NOTE | 2023-01-23 06:13 | NUR ---
Problems reprioritized. Patient report given, questions answered & plan of care reviewed with Melba BEE.
[2023-01-23] MEDS: HYDROcodone/acetaminophen 10/325mg tab PO PRN ×3 (06:35→19:23)
--- NOTE | 2023-01-23 06:42 | NUR ---
Assumed care of pt after report from Dawna BEE. Pt's sat 92%; increased O2 to 2L NC and he was medicated for pain of 7.
[2023-01-23] MEDS: pantoprazole 40mg Tablet.DR PO SCH (08:00)
--- NOTE | 2023-01-23 08:00 | NUR ---
Pt dangled, stood and stepped to chair.
[2023-01-23] MEDS: aspirin 81mg tab.chew PO SCH (08:41)
[2023-01-23] MEDS: metoprolol tartrate 12.5mg (1/2 tablet) PO SCH ×2 (08:41→19:22)
[2023-01-23] MEDS: mupirocin 2% nasal ointment 1gm UD NS SCH (08:42)
[2023-01-23] MEDS: sennosides/docusate sodium tablet PO SCH ×2 (08:42→19:22)
[2023-01-23] MEDS: sodium chloride 0.45% 1,000 ML IV SCH (08:46)
--- NOTE | 2023-01-23 09:40 | NUR ---
Pt returned to bed for chest tube removal.
--- NOTE | 2023-01-23 09:54 | NUR ---
CHEST TUBE AND PACEMAKER WIRES REMOVED BY DR HENDERSON
[2023-01-23] MEDS: insulin Lispro (HumaLOG) vial - multi-dose SQ SCH ×3 (10:33→19:14)
--- NOTE | 2023-01-23 12:05 | NUR ---
Central line dressing replaced, A-line removed w/ 5 min of pressure, and pressure dsg applied by student nurse and this RN.
[2023-01-23] MEDS: furosemide 40mg/4ml inj IV SCH (12:23)
--- NOTE | 2023-01-23 17:30 | NUR ---
Pt OOB to chair for dinner.
--- NOTE | 2023-01-23 18:00 | NUR ---
Patient in room PCU 3011. I have received report from Melba BEE and had the opportunity to ask questions and assume patient care.
--- NOTE | 2023-01-23 18:46 | NUR ---
Report given to Cristiana BEE.
--- NOTE | 2023-01-23 19:30 | NUR ---
Pt OOB in chair, eating meal. Focused on bowel care, Supp offered, pt. requested to delay admin until after transfer to PCU is completed. Pt. packed and ready f/transfer, using IS to 2000 while waiting, lungs are clear. Island dressing to sternal incision removed, and skin cleaned. Sml amt of blood draining mid incision, clean island dressing applied to operative site. Voided X 1 on commode following Cortes removal fr/late afternoon. VSS. Pt. is motivated to progress post-op, requires freq reminders of the importance of sternal precautions.
--- NOTE | 2023-01-23 20:00 | NUR ---
Report given to Soila CHAVEZ Pt. transferred to PCU.
[2023-01-23] MEDS: atorvastatin 10mg tablet PO SCH (22:30)
[2023-01-24] VITALS (7 sets, daily range): BP systolic 123–145; BP diastolic 83–97; PULSE 58–69; RESP 11–21; TEMP 97–99.1; O2SAT 93–98
[2023-01-24] MEDS: HYDROcodone/acetaminophen 10/325mg tab PO PRN ×3 (03:21→21:31)
--- NOTE | 2023-01-24 05:00 | NUR ---
Student documentation: I have reviewed and agree with assessment performed and documented by LETICIA Cai
--- NOTE | 2023-01-24 06:30 | NUR ---
Patient in room PCU 3011. I have received report from Concepcion JAIMES and had the opportunity to ask questions and assume patient care.
[2023-01-24 07:02] LABS: BASOPHILS % (AUTO) 0.1 % (0-1); EOSINOPHILS % (AUTO) 0 % (0-6); HEMATOCRIT 29.7 % (42.0-52.0); HEMOGLOBIN 9.6 g/dl (14.0-17.9); LYMPHOCYTES # (AUTO) 1.5 X10'3 (1.1-4.8); LYMPHOCYTES % (AUTO) 9.4 % (21-51); MEAN CORPUSCULAR HEMOGLOBIN 28.5 PG (27.0-31.0); MEAN CORPUSCULAR HGB CONC 32.4 g/dL (33.0-36.5); MEAN CORPUSCULAR VOLUME 87.9 FL (78-98); MEAN PLATELET VOLUME 9.2 FL (7.4-10.4); MONOCYTES # (AUTO) 1.6 X10'3 (0-0.9); NEUTROPHILS # (AUTO) 12.6 X10'3 (1.8-7.7); NEUTROPHILS % (AUTO) 80.5 % (42-75); PLATELET COUNT 156 X10'3 (140-440); RED BLOOD COUNT 3.38 X10'6 (4.70-6.10); RED CELL DISTRIBUTION WIDTH 13.8 % (11.5-14.5); WHITE BLOOD COUNT 15.7 X10'3 (4.5-11.0)
[2023-01-24 07:35] LABS: ALBUMIN 3.3 G/DL (3.4-5.0); ANION GAP 6 (8-16); BLOOD UREA NITROGEN 32 MG/DL (7-18); BUN/CREATININE RATIO 28.3 (10.0-20.0); CALCIUM 9.2 MG/DL (8.5-10.1); CHLORIDE 98 MMOL/L (99-107); CREATININE 1.13 MG/DL (0.60-1.10); GLUCOSE 141 MG/DL (70-104); MAGNESIUM 2.1 MG/DL (1.5-2.4); PHOSPHORUS 4.4 MG/DL (2.3-4.5); POTASSIUM 4.4 MMOL/L (3.5-5.1); SODIUM 135 MMOL/L (135-145); TOTAL CARBON DIOXIDE 31.1 MMOL/L (24-32); eCRCL 68 ML/MIN; eGFR 65 ML/MIN
[2023-01-24] MEDS: aspirin 81mg tab.chew PO SCH (08:31)
[2023-01-24] MEDS: sennosides/docusate sodium tablet PO SCH ×2 (08:31→20:00)
[2023-01-24] MEDS: metoprolol tartrate 12.5mg (1/2 tablet) PO SCH ×2 (08:32→21:29)
[2023-01-24] MEDS: pantoprazole 40mg Tablet.DR PO SCH (08:32)
[2023-01-24] MEDS: furosemide 40mg/4ml inj IV SCH (09:22)
--- NOTE | 2023-01-24 13:15 | NUR ---
Notified Cardio Kashif LENNON covering for regular Cardio PA that patient is in A-fib currently. No new orders noted at this time.
--- NOTE | 2023-01-24 18:27 | NUR ---
Problems reprioritized. Patient report given, questions answered & plan of care reviewed with Kathleen BEE.
[2023-01-24] MEDS: atorvastatin 10mg tablet PO SCH (21:30)
[2023-01-25] VITALS (18 sets, daily range): BP systolic 87–169; BP diastolic 21–108; PULSE 61–121; RESP 15–22; TEMP 96.7–98.3; O2SAT 92–97
[2023-01-25 05:59] LABS: BASOPHILS % (AUTO) 0.1 % (0-1); EOSINOPHILS # (AUTO) 0.1 X10'3 (0-0.9); RED BLOOD COUNT 3.84 X10'6 (4.70-6.10); RED CELL DISTRIBUTION WIDTH 13.9 % (11.5-14.5)
[2023-01-25 06:00] LABS: EOSINOPHILS % (AUTO) 0.6 % (0-6); HEMATOCRIT 33.6 % (42.0-52.0); LYMPHOCYTES # (AUTO) 1.9 X10'3 (1.1-4.8); LYMPHOCYTES % (AUTO) 13.9 % (21-51); MEAN CORPUSCULAR HEMOGLOBIN 28.6 PG (27.0-31.0); MEAN CORPUSCULAR HGB CONC 32.7 g/dL (33.0-36.5); MEAN CORPUSCULAR VOLUME 87.5 FL (78-98); MEAN PLATELET VOLUME 8.5 FL (7.4-10.4); MONOCYTES # (AUTO) 1.5 X10'3 (0-0.9); MONOCYTES % (AUTO) 11.2 % (2-12); NEUTROPHILS % (AUTO) 74.2 % (42-75); PLATELET COUNT 194 X10'3 (140-440); WHITE BLOOD COUNT 13.5 X10'3 (4.5-11.0)
[2023-01-25 06:21] LABS: ALBUMIN 3.3 G/DL (3.4-5.0); ANION GAP 10 (8-16); BLOOD UREA NITROGEN 30 MG/DL (7-18); CALCIUM 9.2 MG/DL (8.5-10.1); CHLORIDE 95 MMOL/L (99-107); GLUCOSE 145 MG/DL (70-104); MAGNESIUM 2.1 MG/DL (1.5-2.4); PHOSPHORUS 4.5 MG/DL (2.3-4.5); POTASSIUM 3.7 MMOL/L (3.5-5.1); SODIUM 135 MMOL/L (135-145); TOTAL CARBON DIOXIDE 30.3 MMOL/L (24-32); eCRCL 77 ML/MIN; eGFR 75 ML/MIN
[2023-01-25 06:23] LABS: ACT @ 1.70 U 272 SEC (193-297); ACT @ 2.84 U 379 SEC (260-420); BASELINE ACT 139 SEC (101-148); PATIENT WEIGHT 94.0k KG
--- NOTE | 2023-01-25 06:36 | NUR ---
Patient in room PCU 3011. I have received report from Kathleen BEE and had the opportunity to ask questions and assume patient care.
--- NOTE | 2023-01-25 06:40 | NUR ---
Report was given to Cande
[2023-01-25 06:53] LABS: K (ABG) 6.1 mmol/L (3.5-5.1)
[2023-01-25 06:54] LABS: K (ABG) 6.1 mmol/L (3.5-5.1)
[2023-01-25 06:55] LABS: K (ABG) 6.7 mmol/L (3.5-5.1)
[2023-01-25] MEDS ORDERED: amiodarone 150mg/dext, iso-os 100 ML IV ONE (07:55)
[2023-01-25] MEDS: sennosides/docusate sodium tablet PO SCH ×2 (08:00→19:43)
--- NOTE | 2023-01-25 08:18 | NUR ---
Problems reprioritized. Patient report given, questions answered & plan of care reviewed with Samantha EBE.
[2023-01-25] MEDS ORDERED: metoprolol tartrate 1mg/ml inj IV PRN (09:05)
[2023-01-25] MEDS: pantoprazole 40mg Tablet.DR PO SCH (09:28)
[2023-01-25] MEDS: furosemide 40mg/4ml inj IV SCH (09:29)
[2023-01-25] MEDS: aspirin 81mg tab.chew PO SCH (09:29)
[2023-01-25] MEDS: apixaban 5mg tablet PO SCH ×2 (09:46→19:44)
[2023-01-25] MEDS: metoprolol tartrate 12.5mg (1/2 tablet) PO SCH ×2 (09:47→19:45)
[2023-01-25] MEDS: amiodarone/D5 360MG/200ML BAG 200 ML IV SCH ×3 (10:30→20:03)
[2023-01-25] MEDS: HYDROcodone/acetaminophen 10/325mg tab PO PRN ×2 (11:36→19:48)
[2023-01-25] MEDS ORDERED: HYDR-3972 PO (17:38)
[2023-01-25] MEDS ORDERED: ASPI81TA53 PO (17:38)
[2023-01-25] MEDS ORDERED: LOP12.5T PO (17:38)
[2023-01-25] MEDS ORDERED: APIX5TAB3 PO (17:38)
--- NOTE | 2023-01-25 17:38 | NUR ---
Pt converted back to normal sinus rhythm around 1400. I called James Gutierrez and left a message regarding the conversion. I also contacted the resident doctor following Dr. Hernandez and let them know as well. He said to continue the amiodaraone gtt until further instruction from James Gutierrez.
[2023-01-25] MEDS ORDERED: metoprolol tartrate 12.5mg (1/2 tablet) PO SCH (20:00)
[2023-01-25] MEDS: atorvastatin 10mg tablet PO SCH (21:48)
[2023-01-26] VITALS (9 sets, daily range): BP systolic 116–152; BP diastolic 81–123; PULSE 62–81; RESP 15–19; TEMP 97.8; O2SAT 97
[2023-01-26] MEDS: amiodarone/D5 360MG/200ML BAG 200 ML IV SCH (02:48)
--- NOTE | 2023-01-26 06:32 | NUR ---
report given to Samantha
[2023-01-26] MEDS ORDERED: amiodarone 200mg tablet PO SCH (08:00)
[2023-01-26] MEDS ORDERED: AMIO200T67 PO (08:24)
[2023-01-26] MEDS: sennosides/docusate sodium tablet PO SCH (08:39)
[2023-01-26] MEDS: aspirin 81mg tab.chew PO SCH (08:40)
[2023-01-26] MEDS: apixaban 5mg tablet PO SCH (08:40)
[2023-01-26] MEDS: metoprolol tartrate 12.5mg (1/2 tablet) PO SCH (08:40)
[2023-01-26] MEDS: pantoprazole 40mg Tablet.DR PO SCH (08:43)
[2023-01-26 10:07] LABS: MAGNESIUM 2.1 MG/DL (1.5-2.4); PHOSPHORUS 3.8 MG/DL (2.3-4.5); POTASSIUM 3.7 MMOL/L (3.5-5.1)
--- NOTE | 2023-01-26 11:04 | NUR ---
Pt stable for discharge per Dr. Young. All discharge instructions reviewed with patient and all questions answered, pt verbalized understanding. New medications e-scripted to Mary in [place]. PIV discontinued, cannula intact. Tele discontinued. All belongings collected and sent with patient. Wheeled to lobby via nursing staff and picked up by spouse.
== END 2023-01-26 10:40 | disposition home or self-care (01) | DRG 220 ==
LOC: UNDOADMIN 05:34 → PAS IN 05:34 → ICU 2S 12:33 → PCU 3S 01-23 20:18
PROVIDERS: ADMIT Thoracic Surgery (Cardiothoracic Vascular Surgery); ATTEND Thoracic Surgery (Cardiothoracic Vascular Surgery)
PROC: 5A1221Z Performance of Cardiac Output, Continuous (ICD-10-PCS; 2023-01-21)
PROC: 5A1223Z Performance of Cardiac Pacing, Continuous (ICD-10-PCS; 2023-01-21)
PROC: B24BZZ4 Ultrasonography of Heart with Aorta, Transesophageal (ICD-10-PCS; 2023-01-21)
PROC: 30233R1 Transfusion of Nonautologous Platelets into Peripheral Vein, Percutaneous Approach (ICD-10-PCS; 2023-01-21)
PROC: 5A1935Z Respiratory Ventilation, Less than 24 Consecutive Hours (ICD-10-PCS; 2023-01-21)
PROC: 0BH17EZ Insertion of Endotracheal Airway into Trachea, Via Natural or Artificial Opening (ICD-10-PCS; 2023-01-21)
PROC: 02RF08Z Replacement of Aortic Valve with Zooplastic Tissue, Open Approach (ICD-10-PCS; principal; 2023-01-21 09:02)
DX: I35.0 Nonrheumatic aortic (valve) stenosis (principal); I30.9 Acute pericarditis, unspecified; I50.22 Chronic systolic (congestive) heart failure; E78.5 Hyperlipidemia, unspecified; G89.4 Chronic pain syndrome; I48.0 Paroxysmal atrial fibrillation; I11.0 Hypertensive heart disease with heart failure; J45.909 Unspecified asthma, uncomplicated; Z80.9 Family history of malignant neoplasm, unspecified; Z82.49 Family history of ischemic heart disease and other diseases of the circulatory system; Z85.828 Personal history of other malignant neoplasm of skin
CPT/HCPCS: 93312; 93325; Z7506; Z7508; 36415; 36430; 36600; 71045; 71046; 71250; 76376; 80048; 80053; 81003; 82330; 82435; 82803; 82947; 82948; 83036; 83735; 84100; 84132; 84295; 85018; 85025; 85347; 85384; 85610; 85730; 86885; 86900; 86901; 86920; 87070; 87081; 93005; 93880; 93970; 94002; 94010; 94640; 94664; 94668; 94760; 97116; 97161; 97530; A4615; A4618; A6258; A6402; A6449; A7000; A7048; C1751; G0378; J0171; J0282; J0690; J1100; J1644; J1815; J1885; J1940; J2060; J2150; J2250; J2270; J2370; J2405; J2704; J2720; J2765; J2930; J3370; J3475; J3480; J3490; J7030; J7040; J7050; J7120; P9035; P9045; P9047